=== PATIENT | male | born 1960 | race Caucasian/White ===

== ENCOUNTER 2018-03-11 09:49 | Observation (INO) | payer OTHER ==
[~2018-03-11] VITALS: Ht 180.3 cm; Wt 95.0 kg
[2018-03-11] VITALS (8 sets, daily range): BP systolic 124–181; BP diastolic 65–85; PULSE 60–69; RESP 16–20; TEMP 97–98.4; O2SAT 95–99
[~2018-03-11 09:49] MED LIST: ASPI325T PO; CLOP75 PO; LIPI40TA PO; LISI-360 PO; OMEP20TA PO
[2018-03-11] MEDS ORDERED: LIVA4TAB PO (10:13)
[2018-03-11] MEDS ORDERED: CLOP75TA PO (10:13)
[2018-03-11] MEDS ORDERED: COQ-30CA2 PO (10:13)
[2018-03-11] MEDS ORDERED: LISI10TA3 PO (10:13)
[2018-03-11] MEDS ORDERED: ASPI-516 CHEW (10:13)
[2018-03-11] MEDS ORDERED: SODIUM CHLORIDE 0.9% FLUSH 10 ML FLUSH IVF PRN (10:15)
--- NOTE | 2018-03-11 10:23 | PD ---
HPI Chief Complaint: Cardiac Complaint Time Seen by Provider: 10:03 Travel History International Travel<30 days: No Contact w/Intl Traveler<30days: No Traveled to known affect area: No History of Present Illness HPI This patient complains of chest pain. Location is left mid chest. Feels like a pressure sensation. Duration 36 hours. Severity is moderate. Patient has history of CAD with 2 stents. He says this pain feels similar to events that led to his stents being placed. He did have a nuclear stress test roughly 9-10 months ago with his drum handler Dr. gallardo. He took an aspirin prior to arrival. Pain is not sharp stabbing or pleuritic. No dyspnea productive cough or fever or chest wall injury. No exacerbating factors. No alleviating factors. PFSH Past Medical History Arthritis: Yes Cancer: No Cardiac Catheterization: Yes Cardiovascular Problems: Yes High Cholesterol: Yes Chemotherapy: No Cerebrovascular Accident: Yes Diabetes: No Diminished Hearing: Yes Endocrine: No Genitourinary: No Immune Disorder: No Musculoskeletal: Yes Neurologic: No Psychiatric: No Reproductive: No Respiratory: No Radiation Therapy: No Tetanus Vaccination: Unknown Influenza Vaccination: Yes Past Surgical History Abdominal Surgery: Yes (APPENDECTOMY ) Appendectomy: Yes Coronary Stent: Yes (2) Other Surgery: Yes Social History Alcohol Use: Yes (RARELY) Tobacco Use: Yes (CHEWING TABACCO 37 YEARS QUIT OCT 2010) Substance Use: No Allergies-Medications (Allergen,Severity, Reaction): Coded Allergies: No Known Allergies (Verified Allergy, Unknown, 03/11/18) Reported Meds & Prescriptions Reported Meds & Active Scripts Active Reported Coq-10 (Coenzyme Q10 (Ubidecarenone)) 30 Mg Cap PO HS Lisinopril 10 Mg Tab 10 Mg PO DAILY Livalo (Pitavastatin) 4 Mg Tab 4 Mg PO DAILY Clopidogrel (Clopidogrel Bisulfate) 75 Mg Tab 75 Mg PO DAILY Aspirin 81 Mg Chew 81 Mg CHEW DAILY Review of Systems General / Constitutional: No: Fever Eyes: No: Visual changes HENT: No: Headaches Cardiovascular: Positive: Chest Pain or Discomfort Respiratory: No: Shortness of Breath Gastrointestinal: No: Abdominal Pain Genitourinary: No: Dysuria Musculoskeletal: No: Pain Skin: No Rash Neurologic: No: Weakness Psychiatric: No: Depression Endocrine: No: Polydipsia Hematologic/Lymphatic: No: Easy Bruising Physical Exam Narrative GENERAL: Well-nourished, well-developed patient in no apparent distress. SKIN: Focused skin assessment reveals no rash and nodules. Skin is Warm and dry. HEAD: Atraumatic. Normocephalic. EYES: Pupils equal and round. No scleral icterus. No injection or drainage. ENT: No nasal bleeding or discharge. Mucous membranes pink and moist. NECK: Trachea midline. No JVD. CARDIOVASCULAR: Regular rate and rhythm. No murmur appreciated. RESPIRATORY: No accessory muscle use. Clear to auscultation. Breath sounds equal bilaterally. GASTROINTESTINAL: Abdomen soft, non-tender, nondistended. Hepatic and splenic margins not palpable. MUSCULOSKELETAL: No obvious deformities. No clubbing. No cyanosis. No edema. NEUROLOGICAL: Awake and alert. No obvious cranial nerve deficits. Motor grossly within normal limits. Normal speech. PSYCHIATRIC: Appropriate mood and affect; insight and judgment normal. Data Data Last Documented VS Vital Signs Date Time Temp Pulse Resp B/P (MAP) Pulse Ox O2 Delivery O2 Flow Rate FiO2 03/11/18 10:27 63 18 152/80 (104) 97 Room Air Orders Orders Electrocardiogram (03/11/18 10:10) Basic Metabolic Panel (Bmp) (03/11/18 10:10) Ckmb (Isoenzyme) Profile (03/11/18 10:10) Complete Blood Count With Diff (03/11/18 10:10) Prothrombin Time / Inr (Pt) (03/11/18 10:10) Act Partial Throm Time (Ptt) (03/11/18 10:10) Troponin I (03/11/18 10:10) Chest, Single Ap (03/11/18 10:10) Ecg Monitoring (03/11/18 10:10) Iv Access Insert/Monitor (03/11/18 10:10) Oximetry (03/11/18 10:10) Sodium Chloride 0.9% Flush (Ns Flush) (03/11/18 10:15) Aspirin Chew (Aspirin Chew) (03/12/18 09:00) Clopidogrel (Plavix) (03/12/18 09:00) Lisinopril (Prinivil) (03/12/18 09:00) Pravastatin (Pravachol) (03/12/18 09:00) Place In Observation (03/11/18 ) Code Status (03/11/18 13:03) Vital Signs (Adult) Q4H (03/11/18 13:03) Activity Oob Ad Nilda (03/11/18 13:03) [place] / Telemetry .CONTINUOUS (03/11/18 13:03) Intake + Output HARJIT.QSHIFT (03/11/18 13:03) Diet Heart Healthy (03/11/18 Lunch) Sodium Chlor 0.9% 1000 Ml Inj (Ns 1000 M (03/11/18 13:03) Sodium Chloride 0.9% Flush (Ns Flush) (03/11/18 13:15) Sodium Chloride 0.9% Flush (Ns Flush) (03/11/18 21:00) Acetaminophen (Tylenol) (03/11/18 13:15) Ondansetron Inj (Zofran Inj) (03/11/18 13:15) Metoclopramide Inj (Reglan Inj) (03/11/18 13:15) Creatine Kinase (Cpk) (03/11/18 13:03) Creatine Kinase (Cpk) (03/11/18 19:03) Creatine Kinase (Cpk) (03/12/18 01:03) Troponin I (03/11/18 13:03) Troponin I (03/11/18 19:03) Troponin I (03/12/18 01:03) Resp Oxygen Dima C Titrat 1-4 L (03/11/18 ) Case Management Consult (03/11/18 13:03) Enoxaparin Inj (Lovenox Inj) (03/11/18 13:15) Acetaminophen (Tylenol) (03/11/18 13:15) Oxycodone-Acetamin 5-325 Mg (Percocet (03/11/18 13:15) Oxycodone-Acetamin 10-325 Mg (Percocet 1 (03/11/18 13:15) Morphine Inj (Morphine Inj) (03/11/18 13:15) Morphine Inj (Morphine Inj) (03/11/18 13:15) Morphine Inj (Morphine Inj) (03/11/18 13:15) Naloxone Inj (Narcan Inj) (03/11/18 13:15) Docusate Sodium-Senna (Vandana-Colace) (03/11/18 21:00) Magnesium Hydroxide Liq (Milk Of Magnesi (03/11/18 13:15) Sennosides (Senokot) (03/11/18 13:15) Bisacodyl Supp (Dulcolax Supp) (03/11/18 13:15) Lactulose Liq (Lactulose Liq) (03/11/18 13:15) [place] / Telemetry HARJIT.Q8H (03/11/18 13:03) Sodium Chloride 0.9% Flush (Ns Flush) (03/11/18 21:00) Sodium Chloride 0.9% Flush (Ns Flush) (03/11/18 13:15) Nitroglycerin Sl (Nitrostat Sl) (03/11/18 13:15) Pantoprazole (Protonix) (03/11/18 13:15) Lipid Profile (03/12/18 06:00) Electrocardiogram (03/11/18 13:03) Electrocardiogram (03/11/18 19:03) Echo 2d Comp With Doppler (03/11/18 13:03) Resp Oxygen Dima C Titrat 1-4 L (03/11/18 ) Consult Cardiology (03/11/18 ) Labs Laboratory Tests Test 03/11/18 10:20 White Blood Count 5.8 TH/MM3 Red Blood Count 5.38 MIL/MM3 Hemoglobin 16.1 GM/DL Hematocrit 47.0 % Mean Corpuscular Volume 87.4 FL Mean Corpuscular Hemoglobin 30.0 PG Mean Corpuscular Hemoglobin Concent 34.3 % Red Cell Distribution Width 13.2 % Platelet Count 201 TH/MM3 Mean Platelet Volume 9.0 FL Neutrophils (%) (Auto) 51.2 % Lymphocytes (%) (Auto) 34.7 % Monocytes (%) (Auto) 11.5 % Eosinophils (%) (Auto) 2.2 % Basophils (%) (Auto) 0.4 % Neutrophils # (Auto) 3.0 TH/MM3 Lymphocytes # (Auto) 2.0 TH/MM3 Monocytes # (Auto) 0.7 TH/MM3 Eosinophils # (Auto) 0.1 TH/MM3 Basophils # (Auto) 0.0 TH/MM3 CBC Comment DIFF FINAL Differential Comment Prothrombin Time 10.3 SEC Prothromb Time International Ratio 1.0 RATIO Activated Partial Thromboplast Time 24.5 SEC Blood Urea Nitrogen 17 MG/DL Creatinine 0.82 MG/DL Random Glucose 94 MG/DL Calcium Level 9.3 MG/DL Sodium Level 136 MEQ/L Potassium Level 4.4 MEQ/L Chloride Level 104 MEQ/L Carbon Dioxide Level 23.2 MEQ/L Anion Gap 9 MEQ/L Estimat Glomerular Filtration Rate 96 ML/MIN Total Creatine Kinase 88 U/L Troponin I LESS THAN 0.02 NG/ML MDM Medical Decision Making Medical Screen Exam Complete: Yes Emergency Medical Condition: Yes Medical Record Reviewed: Yes Differential Diagnosis Differential diagnosis includes MD, angina, pericarditis, pleurisy, GERD, anxiety. Narrative Course I have reviewed the patient's electronic medical record. IV placed and labs sent He had aspirin prior to arrival I reviewed his EKG which shows sinus rhythm without ST elevation or ectopy I reviewed his chest x-ray which is negative General labs and metabolic studies are normal. First set of cardiac enzymes normal. Patient has known CAD. I do not think one isolated troponin that is normal will be sufficient to send him home. I did review with his drum handler. As well as the hospitalist. We will be a telemetry observation Diagnosis Primary Impression: Chest pain Qualified Codes: R07.9 - Chest pain, unspecified Additional Impression: CAD, multiple vessel Admitting Information Admitting Physician Requests: Observation Jose Guadalupe Singleton MD Mar 11, 2018 10:23
[2018-03-11 10:38] LABS: BASOPHIL % 0.4 % (0.0-2.0); EOSINOPHIL # 0.1 TH/MM3 (0-0.4); EOSINOPHIL % 2.2 % (0.0-4.0); HEMOGLOBIN 16.1 GM/DL (13.0-17.0); LYMPH % 34.7 % (9.0-44.0); MEAN CELL VOLUME 87.4 FL (80.0-100.0); MEAN CORPUSCULAR HGB CONC 34.3 % (32.0-36.0); MONO % 11.5 % (0.0-8.0); MONOCYTE # 0.7 TH/MM3 (0-0.9); NEUT % 51.2 % (16.0-70.0); PLATELET COUNT 201 TH/MM3 (150-450); RED BLOOD COUNT 5.38 MIL/MM3 (4.50-5.90); RED CELL DISTRIBUTION WIDTH 13.2 % (11.6-17.2); WHITE BLOOD COUNT 5.8 TH/MM3 (4.0-11.0)
[2018-03-11 10:47] LABS: PROTHROMBIN TIME - PATIENT 10.3 SEC (9.8-11.6)
--- NOTE | 2018-03-11 10:47 | RADRPT ---
EXAM DATE: 03/11/2018 10:36 AM EDT AGE/SEX: 57 years / Male INDICATIONS: Short of breath, muscle cramps left upper chest. CLINICAL DATA: This is the patient's initial encounter. Patient reports that signs and symptoms have been present for 2 days and indicates a pain score of 5/10. MEDICAL/SURGICAL HISTORY: None. . 2 stents [place] [facility] [place]. . FINDINGS: A single AP view of the chest demonstrates the lungs to be aerated without evidence of mass, infiltra te or effusion. The cardiomediastinal contours are unremarkable. Osseous structures are intact. No significant changes. CONCLUSION: No acute intrathoracic disease. Electronically signed by: Logan Arceo MD 03/11/2018 10:45 AM EDT
[2018-03-11 11:00] LABS: BICARBONATE 23.2 MEQ/L (21.0-32.0); BLOOD UREA NITROGEN 17 MG/DL (7-18); CALCIUM 9.3 MG/DL (8.5-10.1); CHLORIDE 104 MEQ/L (98-107); CREATININE 0.82 MG/DL (0.60-1.30); GLOMERULAR FILTRATION RATE 96 ML/MIN (>89); GLUCOSE,RANDOM 94 MG/DL (74-106); SODIUM (NA) 136 MEQ/L (136-145)
[2018-03-11 11:03] LABS: TROPONIN I LESS THAN 0.02 NG/ML (0.02-0.05)
[2018-03-11] MEDS ORDERED: NALOXONE HCL 0.4 MG/ML AMP IV PUSH PRN (13:15)
[2018-03-11] MEDS ORDERED: MAGNESIUM HYDROXIDE SUSP 30 ML CUP PO PRN (13:15)
[2018-03-11] MEDS ORDERED: ONDANSETRON ODT 4 MG TAB PO PRN (13:15)
[2018-03-11] MEDS ORDERED: NITROGLYCERIN 0.4 MG SL 25 TABS/BTL SL PRN (13:15)
[2018-03-11] MEDS ORDERED: oxyCODONE/ACETAMINOPHEN 5 MG/325 MG TAB PO PRN (13:15)
[2018-03-11] MEDS ORDERED: MORPHINE SULFATE 2 MG/ML SYRINGE IV PUSH PRN (13:15)
[2018-03-11] MEDS ORDERED: BISACODYL 10 MG SUPP RECTAL PRN (13:15)
[2018-03-11] MEDS ORDERED: ACETAMINOPHEN 325 MG TAB PO PRN ×2 (13:15)
[2018-03-11] MEDS ORDERED: MORPHINE SULFATE 4 MG/ML INJ IV PUSH PRN ×2 (13:15)
[2018-03-11] MEDS ORDERED: SENNOSIDES 8.6 MG TAB PO PRN (13:15)
[2018-03-11] MEDS ORDERED: oxyCODONE/ACETAMINOPHEN 10 MG/325 MG TAB PO PRN (13:15)
[2018-03-11] MEDS ORDERED: SODIUM CHLORIDE 0.9% FLUSH 10 ML FLUSH IV FLUSH PRN ×2 (13:15)
[2018-03-11] MEDS ORDERED: METOCLOPRAMIDE HCL 10 MG/2 ML VIAL IV PUSH PRN (13:15)
[2018-03-11] MEDS ORDERED: LACTULOSE SYRUP 20 GM/30 ML CUP PO PRN (13:15)
[2018-03-11] MEDS: ENOXAPARIN SODIUM 40 MG/0.4 ML SYRINGE SQ SCH (15:19)
[2018-03-11] MEDS: PANTOPRAZOLE SOD 40 MG DELAYED RELEASE TAB PO SCH (15:19)
[2018-03-11] MEDS: SODIUM CHLOR 0.9% 1000 ML INJ 1,000 ML IV SCH ×2 (15:27→23:03)
[2018-03-11 16:33] LABS: TROPONIN I LESS THAN 0.02 NG/ML (0.02-0.05)
--- NOTE | 2018-03-11 17:59 | HHI.HP ---
[facility] Primary [facility] Physician Phi Gonzalez MD Admission Diagnosis chest pain, multivessel CAD Diagnoses: (1) CVA (cerebral vascular accident) Diagnosis: Secondary (2) Hypertension Diagnosis: Secondary (3) Hyperlipidemia Diagnosis: Secondary (4) CAD, multiple vessel Diagnosis: Principal (5) Chest pain Diagnosis: Principal Chief Complaint: Cardiac complaint/chest pain Travel History International Travel<30 Days: No Contact w/Intl Traveler <30 Da: No Traveled to Known Affected Are: No History of Present Illness Patient is a 57-year-old gentleman who presented to the emergency department with complaint of chest pain. The chest pain is located in the left mid chest. He describes it as a pressure-like sensation. The duration has been about 36 hours. Severity is moderate. Patient has a history of coronary artery disease with history of 2 coronary stents placed. He states the pain feels similar to events that led to his stents being placed before in the past. He states he did have a nuclear stress test about 9-[address] JORDAN. Patient states he took an aspirin prior to arrival. Patient states it is not sharp or stabbing or pleuritic. He denies any cough or fever or chest wall injury denies any exacerbating factors or any alleviating factors Cardiology was called. Recommended that patient be observed and that he would consult Review of Systems Constitutional: DENIES: Diaphoretic episodes, Fatigue, Fever, Weight gain, Weight loss, Chills, Dizziness, Change in appetite, Night Sweats Endocrine: DENIES: Heat/cold intolerance, Polydipsia, Polyuria, Polyphagia Eyes: DENIES: Blurred vision, Diplopia, Eye inflammation, Eye pain, Vision loss , Photosensitivity Ears, nose, mouth, throat: COMPLAINS OF: Hearing loss, DENIES: Tinnitus, Vertigo, Nasal discharge, Oral lesions, Throat pain, Hoarseness, Ear Pain, Running Nose, Epistaxis, Sinus Pain, Toothache, Odynophagia Respiratory: DENIES: Apneas, Cough, Snoring, Wheezing, Hemoptysis, Sputum production, Shortness of breath Cardiovascular: COMPLAINS OF: Chest pain, DENIES: Palpitations, Syncope, Dyspnea on Exertion, PND, Lower Extremity Edema, Orthopnea, Claudication Gastrointestinal: DENIES: Abdominal pain, Black stools, Bloody stools, Constipation, Diarrhea, Nausea, Vomiting, Difficulty Swallowing, Anorexia Genitourinary: DENIES: Sexual dysfunction, Urinary frequency, Urinary incontinence Musculoskeletal: DENIES: Joint pain, Muscle aches, Stiffness Integumentary: DENIES: Abnormal pigmentation, Nail changes, Pruritus, Rash Hematologic/lymphatic: DENIES: Bruising, Lymphadenopathy Immunologic/allergic: DENIES: Eczema, Urticaria Neurologic: DENIES: Abnormal gait, Headache, Localized weakness, Paresthesias, Seizures, Speech Problems, Tremor, Poor Balance Psychiatric: DENIES: Anxiety, Confusion, Mood changes, Depression, Hallucinations, Agitation, Suicidal Ideation, Homicidal Ideation, Delusions Except as stated in HPI: all other systems reviewed are Neg Past Family Social History Past Medical History Coronary artery disease with history of 2 coronary stents Hypertension Hyperlipidemia Osteoarthritis Cerebrovascular accident Diminished hearing Chronic pain Past Surgical History Appendectomy Coronary stents 2 Right knee surgery Reported Medications Reported Meds & Active Scripts Active Reported Coq-10 (Coenzyme Q10 (Ubidecarenone)) 30 Mg Cap PO HS Lisinopril 10 Mg Tab 10 Mg PO DAILY Livalo (Pitavastatin) 4 Mg Tab 4 Mg PO DAILY Clopidogrel (Clopidogrel Bisulfate) 75 Mg Tab 75 Mg PO DAILY Aspirin 81 Mg Chew 81 Mg CHEW DAILY Allergies: Coded Allergies: No Known Allergies (Verified Allergy, Unknown, 03/11/18) Active Ordered Medications Current Medications Sodium Chloride (NS Flush) 2 ml UNSCH PRN IVF FLUSH AFTER USING IV ACCESS; Start 03/11/18 at 10:15 Aspirin (Aspirin Chew) 81 mg DAILY CHEW ; Start 03/12/18 at 09:00 Clopidogrel Bisulfate (Plavix) 75 mg DAILY PO ; Start 03/12/18 at 09:00 Lisinopril (Prinivil) 10 mg DAILY PO ; Start 03/12/18 at 09:00 Pravastatin Sodium (Pravachol) 80 mg DAILY PO ; Start 03/12/18 at 09:00 Sodium Chloride 1,000 ml @ 100 mls/hr Q10H IV Last administered on 03/11/18at 15:27; Start 03/11/18 at 13:03 Sodium Chloride (NS Flush) 2 ml UNSCH PRN IV FLUSH FLUSH AFTER USING IV ACCESS ; Start 03/11/18 at 13:15 Sodium Chloride (NS Flush) 2 ml BID IV FLUSH ; Start 03/11/18 at 21:00 Acetaminophen (Tylenol) 650 mg Q4H PRN PO TEMP > 100.4; Start 03/11/18 at 13:15 Ondansetron HCl (Zofran Odt) 4 mg Q6H PRN PO NAUSEA OR VOMITING; Start at 13:15 Metoclopramide HCl (Reglan Inj) 5 mg Q6H PRN IV PUSH NAUSEA OR VOMITING; Start 03/11/18 at 13:15 Enoxaparin Sodium (Lovenox Inj) 40 mg Q24H SQ Last administered on 03/11/18at 15 :19; Start 03/11/18 at 13:15 Acetaminophen (Tylenol) 650 mg Q6H PRN PO PAIN SCALE 1 TO 2; Start 03/11/18 at 13:15 Oxycodone/ Acetaminophen (Percocet 5-325 Mg) 1 tab Q6H PRN PO PAIN SCALE 3 TO 5; Start 03/11/18 at 13:15 Oxycodone/ Acetaminophen (Percocet 10-325 Mg) 1 tab Q6H PRN PO PAIN SCALE 6 TO 10; Start 03/11/18 at 13:15 Morphine Sulfate (Morphine Inj) 2 mg Q3H PRN IV PUSH Pain 3-5; if unable to take PO; Start 03/11/18 at 13:15 Morphine Sulfate (Morphine Inj) 4 mg Q3H PRN IV PUSH Pain 6-10;if unable to take PO; Start 03/11/18 at 13:15 Morphine Sulfate (Morphine Inj) 4 mg Q3H PRN IV PUSH BREAKTHROUGH PAIN; Start 03/11/18 at 13:15 Naloxone HCl (Narcan Inj) 0.4 mg UNSCH PRN IV PUSH SEE LABEL COMMENTS; Start at 13:15 Senna/Docusate Sodium (Vandana-Colace) 1 tab BID PO ; Start 03/11/18 at 21:00 Magnesium Hydroxide (Milk Of Magnesia Liq) 30 ml Q12H PRN PO Mild constipation ; Start 03/11/18 at 13:15 Sennosides (Senokot) 17.2 mg Q12H PRN PO Moderate constipation; Start 03/11/18 at 13:15 Bisacodyl (Dulcolax Supp) 10 mg DAILY PRN RECTAL SEVERE CONSITIPATION; Start at 13:15 Lactulose (Lactulose Liq) 30 ml DAILY PRN PO SEVERE CONSITIPATION; Start at 13:15 Sodium Chloride (NS Flush) 2 ml BID IV FLUSH ; Start 03/11/18 at 21:00; Status Cancel Sodium Chloride (NS Flush) 2 ml UNSCH PRN IV FLUSH FLUSH AFTER USING IV ACCESS ; Start 03/11/18 at 13:15; Status Cancel Nitroglycerin (Nitrostat Sl) 0.4 mg Q5M PRN SL ANGINA; Start 03/11/18 at 13:15 Pantoprazole Sodium (Protonix) 40 mg DAILY PO Last administered on 03/11/18at 15 :19; Start 03/11/18 at 13:15 Family History Hypertension Social History Rare alcohol No substance abuse Quit chewing tobacco use CHEW FOR 37 years BUT quit October 2010 Physical Exam Vital Signs Vital Signs Date Time Temp Pulse Resp B/P (MAP) Pulse Ox O2 Delivery O2 Flow Rate FiO2 03/11/18 16:59 97.0 66 18 140/76 (97) 97 03/11/18 14:27 03/11/18 13:41 60 18 124/73 (90) 97 Room Air 03/11/18 10:27 63 18 152/80 (104) 97 Room Air 03/11/18 10:00 62 152/80 (104) 98 Room Air 03/11/18 09:51 69 20 181/85 (117) 99 Physical Exam GENERAL: This is a well-nourished, well-developed patient, in no apparent distress. SKIN: No rashes, ecchymoses or lesions. Cool and dry. HEAD: Atraumatic. Normocephalic. No temporal or scalp tenderness. EYES: Pupils equal round and reactive. Extraocular motions intact. No scleral icterus. No injection or drainage. ENT: Nose without bleeding, purulent drainage or septal hematoma. Throat without erythema, tonsillar hypertrophy or exudate. Uvula midline. Airway patent. NECK: Trachea midline. No JVD or lymphadenopathy. Supple, nontender, no meningeal signs. CARDIOVASCULAR: Regular rate and rhythm without murmurs, gallops, or rubs. S1- S2 no S3 or S4 reproducible pain at the inferior border of the ribs on the left side anterior chest RESPIRATORY: Clear to auscultation. Breath sounds equal bilaterally. No wheezes , rales, or rhonchi. GASTROINTESTINAL: Abdomen soft, non-tender, nondistended. No hepato-splenomegaly , or palpable masses. No guarding. MUSCULOSKELETAL: Extremities without clubbing, cyanosis, or edema. No joint tenderness, effusion, or edema noted. No calf tenderness. Negative Homans sign bilaterally. NEUROLOGICAL: Awake and alert. Cranial nerves II through XII intact. Motor and sensory grossly within normal limits. Five out of 5 muscle strength in all muscle groups. Normal speech. Insight and judgment is good Mood and behavior is appropriate Laboratory Laboratory Tests Test 03/11/18 10:20 03/11/18 15:30 White Blood Count 5.8 Red Blood Count 5.38 Hemoglobin 16.1 Hematocrit 47.0 Mean Corpuscular Volume 87.4 Mean Corpuscular Hemoglobin 30.0 Mean Corpuscular Hemoglobin Concent 34.3 Red Cell Distribution Width 13.2 Platelet Count 201 Mean Platelet Volume 9.0 Neutrophils (%) (Auto) 51.2 Lymphocytes (%) (Auto) 34.7 Monocytes (%) (Auto) 11.5 Eosinophils (%) (Auto) 2.2 Basophils (%) (Auto) 0.4 Neutrophils # (Auto) 3.0 Lymphocytes # (Auto) 2.0 Monocytes # (Auto) 0.7 Eosinophils # (Auto) 0.1 Basophils # (Auto) 0.0 CBC Comment DIFF FINAL Differential Comment Prothrombin Time 10.3 Prothromb Time International Ratio 1.0 Activated Partial Thromboplast Time 24.5 Blood Urea Nitrogen 17 Creatinine 0.82 Random Glucose 94 Calcium Level 9.3 Sodium Level 136 Potassium Level 4.4 Chloride Level 104 Carbon Dioxide Level 23.2 Anion Gap 9 Estimat Glomerular Filtration Rate 96 Total Creatine Kinase 88 66 Troponin I LESS THAN 0.02 LESS THAN 0.02 Result Diagram: 03/11/18 1020 03/11/18 1020 Imaging Last Impressions Chest X-Ray 03/11/18 1010 Signed Impressions: CONCLUSION: No acute intrathoracic disease. Caprini VTE Risk Assessment Caprini VTE Risk Assessment: Mod/High Risk (score >= 2) Caprini Risk Assessment Model Point Value = 1 Point Value = 2 Point Value = 3 Point Value = 5 Age 41-60 Minor surgery BMI > 25 kg/m2 Swollen legs Varicose veins or History of unexplained or recurrent spontaneous Oral contraceptives or hormone replacement Sepsis (< 1 month) Serious lung disease, including pneumonia (< 1 month) Abnormal pulmonary function Acute myocardial infarction Congestive heart failure (< 1 month) History of inflammatory bowel disease Medical patient at bed rest Age 61-74 Arthroscopic surgery Major open surgery (> 45 min) Laparoscopic surgery (> 45 min) Malignancy Confined to bed (> 72 hours) Immobilizing plaster cast Central venous access Age >= 75 History of VTE Family history of VTE Factor V Leiden Prothrombin [id number] Lupus anticoagulant Anticardiolipin antibodies Elevated serum homocysteine Heparin-induced thrombocytopenia Other congenital or acquired thrombophilia Stroke (< 1 month) Elective arthroplasty Hip, pelvis, or leg fracture Acute spinal cord injury (< 1 month) Prophylaxis Regimen Total Risk Factor Score Risk Level Prophylaxis Regimen 0-1 Low Early ambulation 2 Moderate Order ONE of the following: *Sequential Compression Device (SCD) *Heparin 5000 units SQ BID 3-4 Higher Order ONE of the following medications: *Heparin 5000 units SQ TID *Enoxaparin/Lovenox 40 mg SQ daily (WT < 150 kg, CrCl > 30 mL/min) *Enoxaparin/Lovenox 30 mg SQ daily (WT < 150 kg, CrCl > 10-29 mL/min) *Enoxaparin/Lovenox 30 mg SQ BID (WT < 150 kg, CrCl > 30 mL/min) AND/OR *Sequential Compression Device (SCD) 5 or more Highest Order ONE of the following medications: *Heparin 5000 units SQ TID (Preferred with Epidurals) *Enoxaparin/Lovenox 40 mg SQ daily (WT < 150 kg, CrCl > 30 mL/min) *Enoxaparin/Lovenox 30 mg SQ daily (WT < 150 kg, CrCl > 10-29 mL/min) *Enoxaparin/Lovenox 30 mg SQ BID (WT < 150 kg, CrCl > 30 mL/min) AND *Sequential Compression Device (SCD) Assessment and Plan Assessment and Plan Chest pain, atypical with history of coronary artery disease and history of stents -Patient states "this is like the pain" he had before he had his stents Hypertension resume home medications lisinopril Hyperlipidemia resume home medications LIVALO Coronary artery disease continue on aspirin and Plavix Atypical chest pain have pain medications available Trend troponins Consult cardiology Echo DVT prophylaxis with Lovenox GERD prophylaxis with Protonix Code Status Full code Discussed Condition With RN and patient and family and emergency room physician Problem Qualifiers (1) Chest pain: Qualified Codes: R07.9 - Chest pain, unspecified Jet Perez DO Mar 11, 2018 17:59
[2018-03-11] MEDS ORDERED: SODIUM CHLORIDE 0.9% FLUSH 10 ML FLUSH IV FLUSH SCH (21:00)
[2018-03-11] MEDS: DOCUSATE SODIUM 50 MG/SENNA 8.6 MG TAB PO SCH (21:00)
[2018-03-11] MEDS: SODIUM CHLORIDE 0.9% FLUSH 10 ML FLUSH IV FLUSH SCH (21:00)
[2018-03-11 21:15] LABS: TROPONIN I LESS THAN 0.02 NG/ML (0.02-0.05)
--- NOTE | 2018-03-11 21:24 | MB ---
cc: Misa Santiago MD, [place] MD DATE: 03/11/2018 HISTORY OF PRESENT ILLNESS: A 57-year-old white male with a history of coronary artery disease, presented with left lower anterior chest discomfort. This first started when he was working in the yard on Saturday. He then went to [place] with his granddaughter and he again noticed pain. He has had constant pain for 36 hours until he presented to the emergency room. His pain is worse when he bends over. PAST MEDICAL HISTORY: Positive for coronary artery disease, stenting of totally occluded first obtuse marginal artery in 05/2011, cardiac treadmill in 10/2016 was negative for ischemia. History of hypertension, dyslipidemia, mild tricuspid regurgitation, CVA, knee surgery, appendectomy. MEDICATIONS: 1. Livalo 2. Lisinopril. 3. Aspirin. 4. Tylenol. 5. Coenzyme Q10. 6. Plavix. ALLERGIES: NONE. INTOLERANCE TO MULTIPLE STATINS WHICH CAUSE LEG CRAMPS. FAMILY HISTORY: Negative for heart disease. SOCIAL HISTORY: The patient does not smoke. He drinks alcohol socially. REVIEW OF SYSTEMS: Otherwise negative. PHYSICAL EXAMINATION: VITAL SIGNS: Blood pressure 125/55. Pulse 54 and regular. HEENT: Negative. 2+ carotid upstrokes, no bruits. LUNGS: Clear. HEART: Regular with no murmur, gallop or rub. ABDOMEN: Soft, no bruits. EXTREMITIES: Without edema. 2+ distal pulses. NEUROLOGIC: Nonfocal. Left lower anterior chest discomfort is partially reproducible with chest palpation. CARDIOLOGY STUDIES: EKG was reviewed and showed normal sinus rhythm, borderline left axis, incomplete right bundle branch block. LABORATORY DATA: Hemoglobin 16.1, potassium 4.4, creatinine 0.82. Troponin negative x2. DIAGNOSES: 1. Atypical chest pain. 2. Coronary artery disease, history of obtuse marginal artery stenting. 3. Hypertension. 4. Dyslipidemia. PLAN: Mr. Maria will be monitored on telemetry overnight. We will obtain serial enzymes and electrocardiograms. His pain is very atypical. His last echocardiogram in our office showed preserved left ventricular systolic function. He will be discharged home tomorrow if he remains stable. I will see him back in our office shortly after discharge. MD ALANNA Roldan/ , 09:02 PM , 09:22 PM HEIDI
[2018-03-12 00:09] VITALS: BP 118/81; PULSE 61; RESP 17; TEMP 98.5; O2SAT 96
[2018-03-12 03:17] VITALS: BP 128/60; PULSE 62; RESP 17; TEMP 98.7; O2SAT 96
[2018-03-12 05:19] LABS: AUTOMATED NEUTROPHIL # 4.1 TH/MM3 (1.8-7.7); BASOPHIL % 0.4 % (0.0-2.0); EOSINOPHIL # 0.1 TH/MM3 (0-0.4); EOSINOPHIL % 2.2 % (0.0-4.0); HEMOGLOBIN 15.8 GM/DL (13.0-17.0); LYMPH % 24.9 % (9.0-44.0); LYMPHOCYTE # 1.7 TH/MM3 (1.0-4.8); MEAN CELL VOLUME 86.9 FL (80.0-100.0); MEAN CORPUSCULAR HEMOGLOBIN 29.9 PG (27.0-34.0); MEAN CORPUSCULAR HGB CONC 34.4 % (32.0-36.0); MEAN PLATELET VOLUME 8.9 FL (7.0-11.0); MONO % 10.3 % (0.0-8.0); MONOCYTE # 0.7 TH/MM3 (0-0.9); NEUT % 62.2 % (16.0-70.0); PLATELET COUNT 196 TH/MM3 (150-450); RED BLOOD COUNT 5.29 MIL/MM3 (4.50-5.90); RED CELL DISTRIBUTION WIDTH 13.2 % (11.6-17.2); WHITE BLOOD COUNT 6.6 TH/MM3 (4.0-11.0)
[2018-03-12 05:44] LABS: ALBUMIN 3.8 GM/DL (3.4-5.0); AST (GOT) 19 U/L (15-37); BICARBONATE 25.2 MEQ/L (21.0-32.0); BLOOD UREA NITROGEN 15 MG/DL (7-18); CHLORIDE 105 MEQ/L (98-107); CREATININE 0.86 MG/DL (0.60-1.30); GLOMERULAR FILTRATION RATE 91 ML/MIN (>89); GLUCOSE,RANDOM 96 MG/DL (74-106); MAGNESIUM 2.3 MG/DL (1.5-2.5); SODIUM (NA) 139 MEQ/L (136-145)
[2018-03-12 05:45] LABS: CHOLESTEROL 179 MG/DL (120-200)
[2018-03-12 05:48] LABS: TROPONIN I LESS THAN 0.02 NG/ML (0.02-0.05)
[2018-03-12 05:54] LABS: ALKALINE PHOSPHATASE 49 U/L (45-117); ALT (GPT) 25 U/L (12-78); CHOLESTEROL/ HDL RATIO 5.49 RATIO; FREE T4 0.99 NG/DL (0.76-1.46); HDL CHOLESTEROL 32.6 MG/DL (40.0-60.0); LDL CHOLESTEROL 112 MG/DL (0-99); PHOSPHORUS 3.6 MG/DL (2.5-4.9); TOTAL BILIRUBIN ADULT 0.8 MG/DL (0.2-1.0); TOTAL PROTEIN 6.8 GM/DL (6.4-8.2); TRIGLYCERIDES 172 MG/DL (42-150)
[2018-03-12 07:20] VITALS: PULSE 62
--- NOTE | 2018-03-12 07:35 | EKG ---
Date Performed: 03/11/2018 Time Performed: 16:02:30 PTAGE: 57 years EKG: Sinus rhythm BORDERLINE LEFT AXIS DEVIATION RIGHT BUNDLE BRANCH BLOCK ABNORMAL ECG PREVIOUS TRACING : 03/11/2018 10.01 DOCTOR: Mark Gee Interpretating Date/Time 03/12/2018 07:32:01
[2018-03-12 08:49] VITALS: BP 133/78; PULSE 68; RESP 18; TEMP 98.1; O2SAT 95
[2018-03-12] MEDS: PANTOPRAZOLE SOD 40 MG DELAYED RELEASE TAB PO SCH (08:54)
[2018-03-12] MEDS: SODIUM CHLORIDE 0.9% FLUSH 10 ML FLUSH IV FLUSH SCH (08:56)
[2018-03-12] MEDS: SODIUM CHLOR 0.9% 1000 ML INJ 1,000 ML IV SCH (08:56)
[2018-03-12] MEDS: DOCUSATE SODIUM 50 MG/SENNA 8.6 MG TAB PO SCH (08:56)
[2018-03-12] MEDS ORDERED: PRAVASTATIN SOD 80 MG TAB PO SCH (09:00)
[2018-03-12] MEDS ORDERED: ASPIRIN 81 MG CHEW TAB CHEW SCH (09:00)
[2018-03-12] MEDS ORDERED: CLOPIDOGREL 75 MG TAB PO SCH (09:00)
[2018-03-12] MEDS ORDERED: LISINOPRIL 10 MG TAB PO SCH (09:00)
[2018-03-12] MEDS ORDERED: PANT40TA3 PO (11:28)
--- NOTE | 2018-03-12 11:29 | HHI.DCPOC ---
Discharge Care Plan Diagnosis: (1) Atypical chest pain (2) GERD (gastroesophageal reflux disease) Goals to Promote Your Health * To prevent worsening of your condition and complications * To maintain your health at the optimal level Directions to Meet Your Goals Take your medications as prescribed Follow your dietary instruction Follow activity as directed Keep your appointments as scheduled Take your immunizations and boosters as scheduled If your symptoms worsen call your PCP, if no PCP go to Urgent Care Center or Emergency Room Smoking is Dangerous to Your Health. Avoid second hand smoke Call the 24-hour hour crisis hotline for domestic abuse at Jovi Weiss MD Mar 12, 2018 11:29
--- NOTE | 2018-03-12 12:03 | HHI.PR ---
Subjective Remarks Patient denies any deterioration since last night. Says he has very mild soreness when he takes a deep breath. Denies any lower extremity swelling or pain. Objective Vital Signs Date Time Temp Pulse Resp B/P (MAP) Pulse Ox O2 Delivery O2 Flow Rate FiO2 03/12/18 08:49 98.1 68 18 133/78 (96) 95 03/12/18 07:20 62 03/12/18 03:17 98.7 62 17 128/60 (82) 96 03/12/18 00:09 98.5 61 17 118/81 (93) 96 03/11/18 21:20 97 03/11/18 20:20 98.4 64 16 125/65 (85) 95 03/11/18 16:59 97.0 66 18 140/76 (97) 97 03/11/18 15:34 62 03/11/18 14:27 03/11/18 13:41 60 18 124/73 (90) 97 Room Air Result Diagram: 03/12/18 0503 03/12/18 0503 Objective Remarks Heart sounds regular rate rhythm, no murmurs Clear lungs bilaterally, unlabored breathing, no reproducible tenderness to palpation over sternum or left pectoral region No lower extremity edema, no bilateral lower extremity calf tenderness to palpation A/P Assessment and Plan chest pain stable. CE neg x 3. Stable at discharge from cardiology standpoint of troponins have been negative which they have been. starting protonix. obtaining d-dimer, if neg dc home. D-dimer is negative, explained to patient most likely cause of chest pain is acid reflux. To start Protonix and follow-up with cardiology closely outpatient. Jovi Weiss MD Mar 12, 2018 12:03
[2018-03-12 12:11] VITALS: BP 120/61; PULSE 76; RESP 18; TEMP 98.6; O2SAT 95
--- NOTE | 2018-03-12 13:08 | PD.CARD.PN ---
Subjective Subjective Remarks Atypical CP, no SOB, cardiac enzymes negative Objective Medications Current Medications Medications (Trade) Dose Ordered Sig/Cadence Route Start Time Stop Time Status Last Admin (NS Flush) 2 ml UNSCH PRN IVF 03/11/18 10:15 (Aspirin Chew) 81 mg DAILY CHEW 03/12/18 09:00 03/12/18 08:54 (Plavix) 75 mg DAILY PO 03/12/18 09:00 03/12/18 08:53 (Prinivil) 10 mg DAILY PO 03/12/18 09:00 03/12/18 08:54 (Pravachol) 80 mg DAILY PO 03/12/18 09:00 03/12/18 08:53 Sodium Chloride 1,000 ml @ 100 mls/hr Q10H IV 03/11/18 13:03 03/11/18 23:03 (NS Flush) 2 ml UNSCH PRN IV FLUSH 03/11/18 13:15 (NS Flush) 2 ml BID IV FLUSH 03/11/18 21:00 (Tylenol) 650 mg Q4H PRN PO 03/11/18 13:15 (Zofran Odt) 4 mg Q6H PRN PO 03/11/18 13:15 (Reglan Inj) 5 mg Q6H PRN IV PUSH 03/11/18 13:15 (Lovenox Inj) 40 mg Q24H SQ 03/11/18 13:15 03/11/18 15:19 (Tylenol) 650 mg Q6H PRN PO 03/11/18 13:15 (Percocet 5-325 Mg) 1 tab Q6H PRN PO 03/11/18 13:15 (Percocet 10-325 Mg) 1 tab Q6H PRN PO 03/11/18 13:15 (Morphine Inj) 2 mg Q3H PRN IV PUSH 03/11/18 13:15 (Morphine Inj) 4 mg Q3H PRN IV PUSH 03/11/18 13:15 (Morphine Inj) 4 mg Q3H PRN IV PUSH 03/11/18 13:15 (Narcan Inj) 0.4 mg UNSCH PRN IV PUSH 03/11/18 13:15 (Vandana-Colace) 1 tab BID PO 03/11/18 21:00 (Milk Of Magnesia Liq) 30 ml Q12H PRN PO 03/11/18 13:15 (Senokot) 17.2 mg Q12H PRN PO 03/11/18 13:15 (Dulcolax Supp) 10 mg DAILY PRN RECTAL 03/11/18 13:15 (Lactulose Liq) 30 ml DAILY PRN PO 03/11/18 13:15 (Nitrostat Sl) 0.4 mg Q5M PRN SL 03/11/18 13:15 (Protonix) 40 mg DAILY PO 03/11/18 13:15 03/12/18 08:54 Vital Signs / I&O Vital Signs Date Time Temp Pulse Resp B/P (MAP) Pulse Ox O2 Delivery O2 Flow Rate FiO2 03/12/18 12:11 98.6 76 18 120/61 (80) 95 03/12/18 08:49 98.1 68 18 133/78 (96) 95 03/12/18 07:20 62 03/12/18 03:17 98.7 62 17 128/60 (82) 96 03/12/18 00:09 98.5 61 17 118/81 (93) 96 03/11/18 21:20 97 03/11/18 20:20 98.4 64 16 125/65 (85) 95 03/11/18 16:59 97.0 66 18 140/76 (97) 97 03/11/18 15:34 62 03/11/18 14:27 03/11/18 13:41 60 18 124/73 (90) 97 Room Air Physical Exam GENERAL: In NAD. SKIN: Warm and dry. HEAD: Normocephalic. EYES: No scleral icterus. No injection or drainage. NECK: Supple, trachea midline. No JVD or lymphadenopathy. CARDIOVASCULAR: Regular rate and rhythm without murmurs, gallops, or rubs. RESPIRATORY: Breath sounds equal bilaterally. No accessory muscle use. GASTROINTESTINAL: Abdomen soft, non-tender, nondistended. MUSCULOSKELETAL: No cyanosis, or edema. Laboratory Laboratory Tests Test 03/11/18 15:30 03/11/18 20:15 03/12/18 05:03 Total Creatine Kinase 66 U/L 56 U/L 54 U/L Troponin I LESS THAN 0.02 NG/ML LESS THAN 0.02 NG/ML LESS THAN 0.02 NG/ML White Blood Count 6.6 TH/MM3 Red Blood Count 5.29 MIL/MM3 Hemoglobin 15.8 GM/DL Hematocrit 46.0 % Mean Corpuscular Volume 86.9 FL Mean Corpuscular Hemoglobin 29.9 PG Mean Corpuscular Hemoglobin Concent 34.4 % Red Cell Distribution Width 13.2 % Platelet Count 196 TH/MM3 Mean Platelet Volume 8.9 FL Neutrophils (%) (Auto) 62.2 % Lymphocytes (%) (Auto) 24.9 % Monocytes (%) (Auto) 10.3 % Eosinophils (%) (Auto) 2.2 % Basophils (%) (Auto) 0.4 % Neutrophils # (Auto) 4.1 TH/MM3 Lymphocytes # (Auto) 1.7 TH/MM3 Monocytes # (Auto) 0.7 TH/MM3 Eosinophils # (Auto) 0.1 TH/MM3 Basophils # (Auto) 0.0 TH/MM3 CBC Comment DIFF FINAL Differential Comment Blood Urea Nitrogen 15 MG/DL Creatinine 0.86 MG/DL Random Glucose 96 MG/DL Total Protein 6.8 GM/DL Albumin 3.8 GM/DL Calcium Level 9.0 MG/DL Phosphorus Level 3.6 MG/DL Magnesium Level 2.3 MG/DL Alkaline Phosphatase 49 U/L Aspartate Amino Transf (AST/SGOT) 19 U/L Alanine Aminotransferase (ALT/SGPT) 25 U/L Total Bilirubin 0.8 MG/DL Sodium Level 139 MEQ/L Potassium Level 4.4 MEQ/L Chloride Level 105 MEQ/L Carbon Dioxide Level 25.2 MEQ/L Anion Gap 9 MEQ/L Estimat Glomerular Filtration Rate 91 ML/MIN Triglycerides Level 172 MG/DL Cholesterol Level 179 MG/DL LDL Cholesterol 112 MG/DL HDL Cholesterol 32.6 MG/DL Cholesterol/HDL Ratio 5.49 RATIO Free Thyroxine 0.99 NG/DL Thyroid Stimulating Hormone 3rd Gen 1.380 uIU/ML Assessment and Plan Problem List: (1) Atypical chest pain ICD Codes: R07.89 - Other chest pain (2) CAD, multiple vessel ICD Codes: I25.10 - Atherosclerotic heart disease of [place] coronary artery without angina pectoris Status: Acute (3) Hypertension ICD Codes: I10 - Essential (primary) hypertension (4) Hyperlipidemia ICD Codes: E78.5 - Hyperlipidemia, unspecified (5) CVA (cerebral vascular accident) ICD Codes: I63.9 - Cerebral infarction, unspecified Assessment and Plan CP very atypical, most likely of noncardiac origin. Serial cardiac enzymes negative. DC home. Will schedule f/u in our office after discharge. Misa Santiago MD Mar 12, 2018 13:08
[2018-03-12] MEDS: ENOXAPARIN SODIUM 40 MG/0.4 ML SYRINGE SQ SCH (14:04)
[2018-03-12] MEDS ORDERED: ALUMINUM/MAGNESIUM/SIMETH 30 ML CUP PO ONE (14:15)
--- NOTE | 2018-03-12 14:15 | EKG ---
Date Performed: 03/11/2018 Time Performed: 10:01:13 PTAGE: 57 years EKG: Sinus rhythm BORDERLINE LEFT AXIS DEVIATION RIGHT BUNDLE BRANCH BLOCK ABNORMAL ECG INTERPRETATION BASED ON A DEFA ULT AGE OF 39 YEARS PREVIOUS TRACING : 06/21/2011 05.49 DOCTOR: Mark Gee Interpretating Date/Time 03/12/2018 14:13:23
[2018-03-12 17:31] LABS: HEMOGLOBIN A1C 5.4 % (4.3-6.0)
--- NOTE | 2018-03-13 19:06 | EKG ---
Date Performed: 03/11/2018 Time Performed: 20:25:40 PTAGE: 57 years EKG: Sinus rhythm WITH FIRST DEGREE AV BLOCK BORDERLINE LEFT AXIS DEVIATION LOW QRS VOLTAGE IN PRECORDIAL LEADS RIGHT BUNDLE BRANCH BLOCK ABNORMAL ECG PREVIOUS TRACING : 03/11/2018 16.02 Since the previous tracing, no significant change noted DOCTOR: Lakshmi Brower Interpretating Date/Time 03/13/2018 19:04:02
== END 2018-03-12 15:13 | disposition home or self-care (01) ==
LOC: NEPC 09:49 → NEDA 13:29 → NEPGCP 14:18
PROVIDERS: ADMIT Hospitalist; ATTEND Hospitalist
DX: R07.89 Other chest pain (principal); K21.9 Gastro-esophageal reflux disease without esophagitis; I25.10 Atherosclerotic heart disease of native coronary artery without angina pectoris; I10 Essential (primary) hypertension; E78.5 Hyperlipidemia, unspecified; R06.02 Shortness of breath; R94.31 Abnormal electrocardiogram [ECG] [EKG]; Z86.73 Personal history of transient ischemic attack (TIA), and cerebral infarction without residual deficits; Z95.5 Presence of coronary angioplasty implant and graft; Z87.891 Personal history of nicotine dependence
CPT/HCPCS: 71045; 80048; 80053; 80061; 82550; 83036; 83735; 84100; 84439; 84443; 84484; 85025; 85379; 85610; 85730; 93005; 96360; 96361; 96372; 99285; G0378; J1650; J7030